=== PATIENT | female | born 1975 | race African-American/Black ===

== ENCOUNTER 2018-07-29 17:56 | Inpatient (IN) | payer OTHER ==
[~2018-07-29] VITALS: Ht 157.5 cm; Wt 129.7 kg
== END 2018-08-01 13:03 | disposition home or self-care (01) | DRG 390 ==
LOC: ER 17:56 → SEC-K 07-30 10:16 → MEDJ 07-30 10:16
PROC: BW25Y0Z Computerized Tomography (CT Scan) of Chest, Abdomen and Pelvis using Other Contrast, Unenhanced and Enhanced (ICD-10-PCS; principal; 2018-07-31)
DX: K56.690 Other partial intestinal obstruction (principal); E86.0 Dehydration; D25.1 Intramural leiomyoma of uterus

== ENCOUNTER 2018-12-08 06:56 | Outpatient (CLI) | payer OTHER | END 2018-12-08 07:06 | disposition home or self-care (01) | LOC: LAB 06:56 | DX: N83.209 Unspecified ovarian cyst, unspecified side (principal); D50.8 Other iron deficiency anemias; D68.8 Other specified coagulation defects; Z32.00 Encounter for pregnancy test, result unknown; E03.8 Other specified hypothyroidism; E83.51 Hypocalcemia; E78.00 Pure hypercholesterolemia, unspecified; N39.0 Urinary tract infection, site not specified; Z13.6 Encounter for screening for cardiovascular disorders ==

== ENCOUNTER 2019-02-05 13:30 | Emergency (ER) | payer OTHER ==
[~2019-02-05] VITALS: Ht 154.9 cm; Wt 54.4 kg
[2019-02-05] MEDS ORDERED: SYNTHROID50 MCG (14:15)
[2019-02-05] MEDS ORDERED: DOLOGEN 325-11 EACH PO (18:33)
[2019-02-05] MEDS ORDERED: AIRBORNE EFFER1 EACH PO (18:33)
== END 2019-02-05 18:39 | disposition home or self-care (01) ==
LOC: ER 13:30
DX: B34.9 Viral infection, unspecified (principal); J31.2 Chronic pharyngitis

== ENCOUNTER 2019-05-12 14:05 | Outpatient (CLI) | payer OTHER ==
[~2019-05-12 14:05] MED LIST: AIRBORNE EFFER1 EACH PO; DOLOGEN 325-11 EACH PO; SYNTHROID50 MCG
== END 2019-05-12 14:12 | disposition home or self-care (01) ==
LOC: LAB 14:05
DX: R10.2 Pelvic and perineal pain (principal)

== ENCOUNTER 2019-05-15 07:58 | Outpatient (CLI) | payer OTHER | END 2019-05-15 08:17 | disposition home or self-care (01) | LOC: TOM 07:58 | DX: R10.2 Pelvic and perineal pain (principal) ==

== ENCOUNTER → 2019-06-20 11:32 | Outpatient (CLI) | payer OTHER | END | disposition home or self-care (01) | LOC: LAB 11:32 | DX: E03.8 Other specified hypothyroidism (principal) ==

== ENCOUNTER 2019-06-23 10:46 | Outpatient (CLI) | payer OTHER | END 2019-06-23 11:01 | disposition home or self-care (01) | LOC: SONOGRAMA 10:46 → MAMO-SONO 11:15 | DX: E04.8 Other specified nontoxic goiter (principal) ==

== ENCOUNTER → 2019-07-13 12:43 | Outpatient (CLI) | payer OTHER | END | disposition home or self-care (01) | LOC: LAB 12:43 | DX: J11.1 Influenza due to unidentified influenza virus with other respiratory manifestations (principal); R90.89 Other abnormal findings on diagnostic imaging of central nervous system ==

== ENCOUNTER → 2019-12-26 07:55 | Outpatient (CLI) | payer OTHER | END | disposition home or self-care (01) | LOC: LAB 07:55 | DX: E03.8 Other specified hypothyroidism (principal) ==

== ENCOUNTER 2021-02-03 14:55 | Outpatient (CLI) | payer OTHER | END 2021-02-03 15:02 | disposition home or self-care (01) | LOC: SONOGRAMA 14:55 | PROVIDERS: ATTEND Specialist | DX: N60.29 Fibroadenosis of unspecified breast (principal) ==